=== PATIENT | male | born 1970 | race Caucasian/White ===

== ENCOUNTER 2017-02-03 10:26 | Emergency (ER) | payer MEDICAID ==
[~2017-02-03] VITALS: Ht 177.8 cm; Wt 56.0 kg
[~2017-02-03 10:26] MED LIST: TRAZ100T15 PO
[2017-02-03 10:28] VITALS: BP 148/90
== END 2017-02-03 10:59 ==
LOC: ED 10:53
DX: Z53.21 Procedure and treatment not carried out due to patient leaving prior to being seen by health care provider (principal)

== ENCOUNTER 2017-02-03 11:05 | Emergency (ER) | payer MEDICAID ==
[~2017-02-03] VITALS: Ht 177.8 cm; Wt 53.6 kg
[2017-02-03 11:13] VITALS: BP 146/83
== END 2017-02-03 12:41 | disposition home or self-care (01) ==
LOC: ED 12:30
DX: S63.502A Unspecified sprain of left wrist, initial encounter (principal); S63.501A Unspecified sprain of right wrist, initial encounter; X58.XXXA Exposure to other specified factors, initial encounter; Y93.89 Activity, other specified; Y92.89 Other specified places as the place of occurrence of the external cause; Y99.8 Other external cause status
CPT/HCPCS: 99284

== ENCOUNTER 2017-02-04 10:43 | Observation (INO) | payer MEDICAID ==
[~2017-02-04] VITALS: Ht 172.7 cm; Wt 53.6 kg
[2017-02-04 11:18] LABS: HEMATOCRIT 41.8 % (39.2-51.8); HEMOGLOBIN 14.3 g/dL (13.7-18.0); WHITE BLOOD COUNT 8.9 x10^3/uL (3.4-10)
[2017-02-04 11:30] LABS: BLOOD UREA NITROGEN 18 mg/dL (7-18)
[2017-02-04 11:36] LABS: ASPARTATE AMINO TRANSFERASE 68 U/L (15-37)
[2017-02-04 11:45] LABS: ACETAMINOPHEN < 2 mcg/mL (10-30)
[2017-02-04 12:22] LABS: DAU SCREEN DISCLAIMER
[2017-02-04] MEDS ORDERED: ZIPRASIDONE 20 MG INJ IM ONE ×4 (16:51→19:33)
[2017-02-04] MEDS ORDERED: PLEASE ENTER HEIGHT AND WEIGHT MC SCH (17:00)
[2017-02-05 10:48] VITALS: BP 124/74
[2017-02-05] MEDS ORDERED: ZIPRASIDONE 20MG CAPSULE ONE (15:08)
[2017-02-05] MEDS ORDERED: ZIPRASIDONE 20MG CAPSULE PO SCH ×3 (16:00→21:00)
== END 2017-02-05 16:22 ==
LOC: ED 10:54 → EDIP 02-05 14:00
PROVIDERS: ADMIT Internal Medicine; ATTEND Internal Medicine
DX: R45.851 Suicidal ideations (principal)
CPT/HCPCS: 36415; 80053; 80307; 80329; 85025; 93005; 96372; 99285; G0378; J3486; G0479; G0480